=== PATIENT | male | born 1975 | race Caucasian/White ===

== ENCOUNTER 2019-07-10 08:13 | Emergency (ER) | payer SELFPAY ==
[2019-07-10 08:17] VITALS: BP 132/83; PULSE 70; RESP 16; TEMP 36.5; O2SAT 97
[2019-07-10 08:44] LABS: Bilirubin Negative (Negative); Blood Negative (Negative); Clarity Clear (Clear); Glucose Negative (Negative); Ketones Negative (Negative); Leukocyte Esterase Negative (Negative); Nitrite Negative (Negative); Urobilinogen 0.2 EU/dL (Up TO 0.2)
--- NOTE | 2019-07-10 08:45 | DI.US_ITS ---
EXAM: US SCROTUM CLINICAL HISTORY: R teste pain and swelling TECHNIQUE: Ultrasound performed using standard protocol. COMPARISON: US US RENAL from 07/10/2019 FINDINGS: Scrotal ultrasound was performed according to the usual protocol. Left testis measures 58 x 30 x 40 millimeters, right testis measures 40 x 31 x 15 millimeters. There is normal echotexture and normal vascular flow to the testes on Doppler evaluation. No focal testicular mass seen. There is a small right hydrocele. The epididymi are unremarkable in appearance. IMPRESSION: Slight asymmetry of testicular cysts size as described above, left testis mildly enlarged compared to the right. However there is no specific evidence of inflammatory or vascular obstructive process. DATA REPOSITORY:
--- NOTE | 2019-07-10 08:45 | DI.US_ITS ---
EXAM: US RENAL CLINICAL HISTORY: R flank pain TECHNIQUE: Ultrasound performed using standard protocol. COMPARISON: No exams were available for comparison FINDINGS: Kidneys are normal in size and shape. There is no evidence of a renal mass, hydronephrosis, or nephr olithiasis. Urinary bladder is unremarkable in appearance. Ureteral jets are visualized bilaterally. Pre and po stvoid urinary bladder volume 153 cc and 26 cc respectively. IMPRESSION: Negative renal ultrasound. No evidence of urinary tract obstruction. DATA REPOSITORY:
--- NOTE | 2019-07-10 08:51 | W.ED.GENAD ---
Discharge Plan Disposition Patient Disposition: HOME Condition: Improving Discharge Details Chief Complaint: Abd Prob Clinical Impression: Hydrocele, right Primary Care Provider: None,None ED Provider: Aamir Barriga Home Meds and New Rx's Prescriptions: No Action No Known Home Meds RF: 0 Discharge Instructions Instructions: Hydrocele (ED) Additional Instructions: Your work-up today included blood work, urinalysis, ultrasound of the kidneys and scrotum. You have a hydrocele. Please see enclosed information. Please wear bicycling shorts while cycling. We will refer you to urology for follow-up. Return if you develop a fever, bloody urine, worsening pain, or any other acute concern. Referrals: Sandeep Ball MD [ [facility] STAFF PHYSICIAN] - Medical Decision Making This is a 43-year-old male who presents with 2 weeks of right testicle and right flank pain. He relates it somewhat temporally to the cessation of approximately 4 years of prescribed testosterone use when he was told his PSA was elevated. He also notes recent increase in mountain biking as well as difficulty with ejaculation but no difficulty with tumescence. He is well-appearing, normal vital signs, exam reveals a somewhat swollen/edematous and tender right scrotum. Differential diagnosis would include epididymitis, hydrocele, testicular trauma from mountain biking, prostatitis and urinary tract infection. Patient had urinalysis, screening laboratories, ultrasound performed. US: neg renal us, testicular ultrasound with positive vascular flow present bilaterally, unremarkable epididymis, right hydrocele present. Labs are reassuring with unremarkable CBC, comprehensive, UA. PSA is pending. Given the patient's recent increase of bicycle riding, without support of undergarment, I do feel likely has mild trauma induced hydrocele. Discussed this with him as well as indication for referral to urology for follow-up. Patient was seen by care management in the emergency department prior to discharge. Lab Data Lab results reviewed: Yes I reviewed the patient's lab results. Labs: Laboratory Results - last 24 hr 07/10/19 07/10/19 07/10/19 08:30 08:50 08:50 WBC 4.89 RBC 5.18 Hgb 15.8 Hct 43.6 MCV 84.2 MCH 30.5 MCHC 36.2 H RDW 12.4 Plt Count 195 MPV 9.9 Immature Gran % 0.0 Neutrophils % 51.1 Lymphocytes % 39.5 Monocytes % 7.4 Eosinophils % 1.6 Basophils % 0.4 Absolute Neutrophils 2.50 Absolute Lymphocytes 1.93 Absolute Monocytes 0.36 Absolute Eosinophils 0.08 Absolute Basophils 0.02 Sodium 138 Potassium 3.7 Chloride 102 Carbon Dioxide 29.7 Anion Gap 6.3 BUN 13 Creatinine 1.09 Estimated GFR/1.73 m2 >= 60.00 Glucose 120 H Calcium 9.0 Total Bilirubin 0.7 AST 17 ALT 42 Alkaline Phosphatase 85 Total Protein 7.4 Albumin 4.0 Urine Color Yellow Urine Clarity Clear Urine pH 6.0 Ur Specific [place] 1.020 Urine Protein Negative Urine Ketones Negative Urine Blood Negative Urine Nitrite Negative Urine Bilirubin Negative Urine Urobilinogen 0.2 Ur Leukocyte Esterase Negative Urine Glucose Negative HPI General Mode of arrival: ambulatory. Date/Time Provider Initiated Documentation: 07/10/19 08:15. Limitations to Documentation: no limitations. Information obtained by: patient. History of Present Illness 43 year old M presents to the emergency department with the chief complaint of Right testicle, right flank pain 4 weeks time, described as moderate, Quality is described as dull, and is localized to the genitals and right. Patient reports radiation to back. Patient started experiencing this day(s) and it has been intermittent. No relieving factors improve symptom(s), Other factors that worsen symptoms (Seems to worsen with Valsalva) . Patient notes other (No weight loss. Reports difficulty with ejaculation); denies diaphoresis, fever/chills and loss of appetite. Patient did receive the following treatments prior to arrival, none Related Data Home Medications Medication Instructions Recorded Confirmed Unknown [No Known Home Meds] 07/10/19 07/10/19 Allergies Allergy/AdvReac Type Severity Reaction Status Date / Time No Known Allergies Allergy Unverified 07/10/19 08:22 General Stated Complaint: Abd Prob BARRON: 3 Review of Systems Narrative: Reports history of elevated PSA and discontinuation of testosterone. Left herniorrhaphy as a child. No recent illness no known sick contacts REPLACED BY [facility] Social History Smoking/Tobacco Use Status: Never Alcohol Intake: never Substance use type: does not use Exam Narrative Exam Narrative: GEN: awake, alert, oriented 3. Pleasant, well groomed, interactive. HEAD: Normocephalic, atraumatic EYES: PERRL, EOMI NECK: Full ROM, no menigismus CHEST/RESP: Nontender, clear to auscultation bilateral, no wheeze/rhonchi/rales CARDIOVASCULAR: RRR, no murmur, rub chetna. 2+ Rad pulse bilateral ABDOMEN: Soft, discrete/minimal tenderness right and left lower quadrants without appreciable mass, testes descended bilaterally, edematous scrotum on the right and mildly tender. 2+ femoral pulse bilaterally. Circumcised and unremarkable penile exam. +Bowel sounds. Rectal examination with normal rectal tone, no mass, no significant tenderness or bogginess of the prostate EXT: Full ROM, no edema, no rash Neuro: Grossly normal neurologic exam, conversant, interactive. Psych: Speech fluent, thoughts congruent, affect normal Course Vital Signs Vital signs: Vital Signs Temperature 36.5 C 07/10/19 08:17 Pulse 70 07/10/19 08:17 Respiratory Rate 16 07/10/19 08:17 Blood Pressure 132/83 07/10/19 08:17 Pulse Oximetry 97 07/10/19 08:17 Temperature 36.5 C 07/10/19 08:17 Temperature Source Skin 07/10/19 08:17 Pulse 70 07/10/19 08:17 Respiratory Rate 16 07/10/19 08:17 Respiratory Effort Non-Labored 07/10/19 08:17 Blood Pressure 132/83 07/10/19 08:17 Blood Pressure Position Sitting 07/10/19 08:17 Pulse Oximetry 97 07/10/19 08:17 Oxygen Delivery Method Room Air 07/10/19 08:17 Oxygen Flow Rate 0 07/10/19 08:17 Pain Level 3 07/10/19 08:23 Lab/Test Results Lab/Test Results: Laboratory Tests Range/Units 07/10/19 08:30 Urine Color (Yellow) Yellow Urine Clarity (Clear) Clear Urine pH (5-8) 6.0 Ur Specific [place] (1.005-1.025) 1.020 Urine Protein (Negative) mg/dL Negative Urine Ketones (Negative) mg/dL Negative Urine Blood (Negative) Negative Urine Nitrite (Negative) Negative Urine Bilirubin (Negative) Negative Urine Urobilinogen (Up TO 0.2) EU/dL 0.2 Ur Leukocyte Esterase (Negative) Negative Urine Glucose (Negative) mg/dL Negative
[2019-07-10 09:06] LABS: Absolute Basophil Count 0.02 k/cumm (0.0-0.2); Absolute Eosinophil Count 0.08 k/cumm (0.0-0.7); Absolute Lymphocyte Count 1.93 k/cumm (1.2-3.4); Absolute Monocyte Count 0.36 k/cumm (0.11-0.7); Basophils % 0.4; Eosinophils % 1.6; HCT 43.6 % (40.0-50.0); HGB 15.8 g/dL (13.5-17.5); Lymphocytes % 39.5; Mean Corp. HGB Concentration 36.2 g/dL (32.0-36.0); Mean Corpuscular Hemoglobin 30.5 pg (27.0-33.0); Mean Corpuscular Volume 84.2 fL (80-95); Mean Platelet Volume 9.9 fL (8.0-11.0); Monocytes % 7.4; Neutrophils % 51.1; Platelet Count 195 x1000/uL (130-400); RBC 5.18 m/cumm (4.50-6.00); RBC Distribution Width 12.4 % (11.8-14.1); White Blood Cell Count 4.89 k/cumm (4.4-10.8)
[2019-07-10 09:19] LABS: ALT 42 U/L (16-63); AST 17 U/L (15-37); Alkaline Phosphatase 85 U/L (46-116); Anion Gap 6.3 mmol/L (3-11); BUN 13 mg/dL (7-18); Bilirubin, Total 0.7 mg/dL (0.2-1.0); CO2 29.7 mmol/L (21.0-32.0); CREATININE 1.09 mg/dL (0.70-1.30); Chloride 102 mmol/L (98-107); Glucose 120 mg/dL (74-106); Potassium 3.7 mmol/L (3.5-5.1); Sodium 138 mmol/L (136-145); Total Protein 7.4 g/dL (6.4-8.2)
[2019-07-10 10:55] VITALS: BP 119/62; PULSE 47; RESP 18; TEMP 36.6; O2SAT 95
--- NOTE | 2019-07-10 11:00 | NUR.NOTE ---
Nursing Note: FAXED REFERRAL TO UROLOGY
--- NOTE | 2019-07-10 12:17 | CMPROGNOTE_ITS ---
- If Service Date Differs Date of service: 07/10/19 Time of Service: 12:17 Care Management Progress Note CM meets with Laith at the request of ED provider. Laith reports he is currently unemployed due to Covid-19, does not have health insurance and is in need of medical care. He states he will only be in [place] until approximately the end of July at which time he will be moving [id number]. Since he does not plan on remaining in [place], applying for health insurance through [employer] is unfortunately not an option for him at this time. Laith is provided with contact information for [employer] and instructed to call them for assistance with obtaining health insurance IF he decides to stay in [place] long-term. He is also provided with a [employer] Application and is instructed to call the [facility] billing office to enter into a payment plan, if needed.
== END 2019-07-10 11:20 | disposition home or self-care (01) ==
PROVIDERS: Emergency Provider Emergency Medicine
DX: N43.3 Hydrocele, unspecified (principal)
CPT/HCPCS: 36415; 76770; 80053; 99284; 76870; 81003; 84154; 85025